=== PATIENT | male | born 1990 | race American Indian/Alaskan Native ===

== ENCOUNTER 2018-12-12 17:41 | Emergency (ER) | payer SELFPAY ==
[2018-12-12] MEDS ORDERED: GI Cocktail Oral Solution 30 ML PO ONE (18:13)
[2018-12-12] MEDS ORDERED: Lactated Ringers 1,000 ML IV ONE (18:14)
[2018-12-12] MEDS ORDERED: Pantoprazole 40 MG Vial IVPUSH ONE (18:15)
[2018-12-12] MEDS ORDERED: GI Cocktail Oral Solution 30 ML ONE (18:36)
[2018-12-12 18:47] LABS: CHLORIDE,CL 105 mmol/L (54-184); SODIUM,NA 143 mmol/L (69-191)
[2018-12-12 18:51] LABS: ANION GAP 16.5 mmol/L (10-20)
[2018-12-12] MEDS ORDERED: Ondansetron 4 MG/2 ML SDV IVPUSH ONE (18:59)
--- NOTE | 2018-12-12 19:08 | EDM.PDOC ---
ED HPI GENERAL MEDICAL PROBLEM - General Chief Complaint: Abdominal Pain Stated Complaint: STOMACH PAIN AND VOMITING Time Seen by Provider: 12/12/18 17:45 Source of Information: Reports: Patient, RN History Limitations: Reports: No Limitations - History of Present Illness INITIAL COMMENTS - FREE TEXT/NARRATIVE: He developed abdominal pain and vomiting last . He has had chills but has not noted any fever. The abdominal pain is in the midepigastric area and RUQ. It radiates to his back. Eating makes it worse. Relaxing and lying quietly makes it better. He states he has had normal bowel movements lately which have been several times a day. Pain is sharp and tight. He had a gallbladder ultrasound a couple of years ago and was told he had an inflamed gallbladder. However, he was given Dilaudid and he states the doctor was amazed at how his inflammation went away. He denies cough, shortness of breath or URI symptoms. Onset: Gradual Onset Date: 12/08/18 Location: Reports: Abdomen Quality: Reports: Ache, Same as Previous Episode, Sharp Severity: Moderate Improves with: Reports: Rest Worsens with: Reports: Eating, Movement Associated Symptoms: Reports: Loss of Appetite, Nausea/Vomiting Upper Abdomen Pain Score (Numeric/FACES): 7 - Related Data Allergies Allergy/AdvReac Type Severity Reaction Status Date / Time amitriptyline Allergy Rash Verified 12/12/18 17:54 sumatriptan Allergy Rash Verified 12/12/18 17:54 Home Meds: Home Meds . [No Known Home Meds] 12/12/18 [History] Past Medical History Cardiovascular History: Reports: Afib, Arrhythmia Respiratory History: Reports: Asthma Neurological History: Reports: Migraines Social & Family History - Family History Family Medical History: Noncontributory - Tobacco Use Smoking Status *Q: Current Every Day Smoker Years of Tobacco use: 3 Packs/Tins Daily: 0.2 - Recreational Drug Use Recreational Drug Use: No ED ROS GENERAL - Review of Systems Review Of Systems: ROS reveals no pertinent complaints other than HPI. Constitutional: Reports: Decreased Appetite ED EXAM, GI/ABD - Physical Exam Exam: See Below Text/Narrative:: Male lying on cart in no obvious distress. He is lying quietly; he has no obvious pain with movement. Abdomen is flat; tender to palpation in midepigastric area and RUQ. He has positive Martin's test; he was given GI cocktail with some relief. He was given PPI. Bowel sounds are present X 4. Exam Limited By: No Limitations General Appearance: Alert, WD/WN, No Apparent Distress Ears: Normal External Exam Nose: Normal Inspection, Normal Mucosa Throat/Mouth: Normal Inspection Head: Atraumatic, Normocephalic Neck: Normal Inspection, Supple Respiratory/Chest: No Respiratory Distress, Lungs Clear, Normal Breath Sounds Cardiovascular: Regular Rate, Rhythm, No Edema GI/Abdominal Exam: Tender. No: No Distention, Mass, Hepatomegaly Neurological: Alert, Oriented, Normal Cognition, Normal Gait Psychiatric: Normal Affect, Anxious Skin Exam: Warm, Dry, Intact, Normal Color, No Rash Lymphatic: No Adenopathy Course - Vital Signs Last Recorded V/S: Last Vital Signs Temp 98.1 F 12/12/18 17:48 Pulse 87 12/12/18 17:48 Resp 18 12/12/18 17:48 BP 109/65 12/12/18 17:48 Pulse Ox 96 12/12/18 17:48 - Orders/Labs/Meds Labs: Laboratory Tests 12/12/18 12/12/18 Range/Units 18:17 18:17 WBC 6.3 (4.0-10.0) x10^3/uL RBC 5.61 (4.5-6.0) x10^6/uL Hgb 16.8 (14.0-18.0) g/dL Hct 48.9 (40.0-52.0) % MCV 87.2 (78.0-93.0) fL MCH 29.9 (26.0-32.0) pg MCHC 34.4 (32.0-36.0) g/dL RDW Coeff of Damian 12.7 (10.0-15.0) % Plt Count 189 (130-400) x10^3/uL Neut % (Auto) 64.6 (50.0-80.0) % Lymph % (Auto) 23.8 L (25.0-50.0) % [place] % (Auto) 7.1 (2.0-11.0) % Eos % (Auto) 4.0 (0.0-4.0) % Baso % (Auto) 0.5 (0.2-1.2) % Sodium 143 (69-191) mmol/L Potassium 4.5 (1.5-9.9) mmol/L Chloride 105 (54-184) mmol/L Carbon Dioxide 26 (21-32) mmol/L Anion Gap 16.5 (10-20) mmol/L BUN 13 (7-18) mg/dL Creatinine 1.3 (0.70-1.30) mg/dL Est Cr Clr Drug Dosing 90.10 mL/min Estimated GFR (MDRD) > 60 Glucose 100 (74-106) mg/dL Calcium 8.4 L (8.5-10.1) mg/dL Corrected Calcium 8.64 (8.5-10.1) mg/dL Total Bilirubin 0.2 (0.2-1.0) mg/dL AST 14 L (15-37) U/L ALT 27 (16-63) U/L Alkaline Phosphatase 92 (46-116) U/L Total Protein 7.5 (6.4-8.2) g/dL Albumin 3.7 (3.4-5.0) g/dL Globulin 3.8 Albumin/Globulin Ratio 0.97 Lipase 229 (73-393) U/L Meds: Medications Discontinued Medications Generic Name Dose Route Start Last Admin Trade Name Freq PRN Reason Stop Dose Admin Al Hydroxide/Mg Hydroxide 30 ml 12/12/18 18:13 12/12/18 18:31 Gi Cocktail PO 12/12/18 18:14 30 ml ONETIME ONE Administration Al Hydroxide/Mg Hydroxide Confirm 12/12/18 18:36 12/12/18 18:36 Gi Cocktail Administered 12/12/18 18:37 Not Given Dose 30 ml .ROUTE .STK-MED ONE Lactated Ringer's 1,000 mls @ 500 mls/hr 12/12/18 18:14 12/12/18 18:35 Ringers, Lactated IV 12/12/18 20:13 500 mls/hr ONETIME ONE Administration Ondansetron HCl 4 mg 12/12/18 18:59 12/12/18 19:07 Zofran IVPUSH 12/12/18 19:00 4 mg ONETIME ONE Administration Pantoprazole Sodium 40 mg 12/12/18 18:15 12/12/18 18:36 Protonix Iv IVPUSH 12/12/18 18:16 40 mg ONETIME ONE Administration Departure - Departure Time of Disposition: 19:10 Disposition: Home, Self-Care 01 Condition: Good Clinical Impression: Abdominal pain - Discharge Information *PRESCRIPTION DRUG MONITORING PROGRAM REVIEWED*: Not Applicable *COPY OF PRESCRIPTION DRUG MONITORING REPORT IN PATIENT [place]UL[place]: Not Applicable Instructions: Abdominal Pain, Adult, Gastritis, Adult Referrals: PCP,None [Primary Care Provider] - Forms: ED Department Discharge Additional Instructions: Clear liquid diet. Call in morning to see PCP. You likely need an ultrasound of your gallbladder. You should also take Nexium 20 mg one pill twice a day for one month. This is over the counter. Call [facility] to see PATEL Saldana If your pain worsens markedly, return for evaluation Call if questions Sip water or clear liquids; small amount at a time. - Problem List Review Problem List Initiated/Reviewed/Updated: Yes - Assessment/Plan Assessment:: Abdominal Pain Plan: Abdominal Pain; Midepigastric Right Upper Quadrant Pain Suggest he follow up with PCP He may need RUQ ultrasound; he reports ultrasound 2 years ago that showed "inflamed gallbladder" He is advised to get OTC nexium or Omeprazole and to take 1 po bid
== END 2018-12-12 19:10 | disposition home or self-care (01) ==
LOC: VM.ED 17:41
DX: R10.13 Epigastric pain (principal); R10.11 Right upper quadrant pain; F17.210 Nicotine dependence, cigarettes, uncomplicated; Z88.8 Allergy status to other drugs, medicaments and biological substances
CPT/HCPCS: 36415; 80053; 83690; 85025; 96374; 96375; 99283; 99284; A9270; C9113; J2405; J7120

== ENCOUNTER 2020-08-12 21:14 | Emergency (ER) | payer MEDICAID ==
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
== END 2020-08-12 23:52 ==
LOC: VM.ED 21:14
DX: S09.90XA Unspecified injury of head, initial encounter (principal); S20.219A Contusion of unspecified front wall of thorax, initial encounter; I48.91 Unspecified atrial fibrillation; J45.909 Unspecified asthma, uncomplicated; Z88.8 Allergy status to other drugs, medicaments and biological substances; Y04.0XXA Assault by unarmed brawl or fight, initial encounter
CPT/HCPCS: 70450; 71045; 99283; 99284